=== PATIENT | female | born 1955 | race African-American/Black ===

== ENCOUNTER 2019-09-25 17:44 | Inpatient (IN) | payer BC, OTHER ==
[~2019-09-25] VITALS: Ht 167.6 cm; Wt 79.4 kg
[2019-09-25 18:12] VITALS: BP 135/102
[2019-09-25 18:21] LABS: ABSOLUTE NEUTROPHILS 3.1 thou/uL (1.4-8.2); BASOPHILS 1.5 % (0.0-2.0); EOSINOPHILS 0.5 % (0.0-3.0); MCH 31.1 pg (26.0-34.0); MCHC 32.4 g/dL (28.0-37.0); MCV 95.8 fL (80.0-100.0); MONOCYTES 6.9 % (1.0-8.0); PLATELET COUNT 252 thou/uL (150-400); POLYS 36.1 % (36.0-66.0); RBC 4.18 mil/uL (4.20-5.00); RDW 16.1 % (10.5-14.5); WBC 8.6 thou/uL (4.0-11.0)
[2019-09-25 18:23] LABS: CALCIUM 9.4 mg/dL (8.5-10.1); CREATININE 0.5 mg/dL (0.6-1.0); POTASSIUM 3.4 mmol/L (3.5-5.1)
[2019-09-25 18:29] LABS: ALBUMIN 3.9 g/dL (3.4-5.0); TOTAL BILIRUBIN 0.5 mg/dL (<0.1-1.0); TOTAL PROTEIN 8.5 g/dL (6.4-8.2)
[2019-09-25 19:52] LABS: URINE BILIRUBIN NEGATIVE (Negative); URINE BLOOD NEGATIVE (Negative); URINE CLARITY CLEAR; URINE COLOR YELLOW; URINE GLUCOSE-RANDOM* NEGATIVE (Negative); URINE KETONES 1+ (Negative); URINE LEUKOCYTES-REFLEX NEGATIVE (Negative); URINE NITRITE-REFLEX NEGATIVE (Negative); URINE PROTEIN (DIPSTICK) NEGATIVE (Negative); URINE SPECIFIC GRAVITY 1.015 (1.005-1.035); URINE UROBILINOGEN 0.2 E.U./dl (0.2-1.0)
[2019-09-25 20:00] LABS: AMP/METHAMP Negative (Negative); BARBITURATES Negative (Negative); BENZODIAZEPINES Negative (Negative); COCAINE Negative (Negative); METHADONE Negative (Negative); OPIATES Negative (Negative); PCP Negative (Negative)
[2019-09-25 21:09] VITALS: BP 135/102
--- NOTE | 2019-09-25 21:14 | NUR ---
ED NURSE CALLED INPATIENT NURSE FOR REPORT WAS TOLD THE NURSE IS IN A ROOM PASSING MEDS AND WILL HAVE TO CALL THE ED NURSE BACK
--- NOTE | 2019-09-25 21:30 | NUR ---
ED NURSE CALLED AGAIN TO GIVE REPORT TO INPATIENT NURSE, WAS PLACED ON HOLD AND THEN TOLD THAT THE NURSE WILL CALL BACK IN 10 MINUTES. ED NURSE EXPRESSED THAT IF REPORT IS NOT CALLED IN THE NEXT 10 MINUTES, NURSE WILL GIVE BEDSIDE REPORT
[2019-09-25 22:01] LABS: MAGNESIUM 1.9 mg/dL (1.8-2.4); PHOSPHORUS 3.2 mg/dL (2.5-4.9)
[2019-09-25 22:10] VITALS: BP 142/89
--- NOTE | 2019-09-26 03:16 | NUR ---
[PT WA SADMITTED TO THE UNIT FROM THE ER IN A STABLE CONDITION.PT C/O PAIN ON HER L HIP,MANAGED WITH MED.PT ALERT,CALM AND COOPERATIVE ON ADMIT.PT ON CONT PULSE OX PT TEND TO DESAT WHILE ASLEEP.LEDBETTER CATH TO DD.PT NPO AT THIS TIME FOR A POSSIBLE SURGERY IN THE AM.PT TACHY HOURS AFTER ADMIT,ANXIETY MED ADMINISTERED.PT'S IV ON HER L HAND INFILTRATED,NEW ONE STARTED ON HER R CHEST.PT SLEEPING ON HER BED AT THIS TIME.IVF INFUSING ORDERED.FALL PRECAUTIONS IN PLACE,CALL LIGHT WITHIN REACH.
[2019-09-26 04:30] VITALS: BP 114/77
[2019-09-26 06:37] LABS: ALBUMIN 3.3 g/dL (3.4-5.0); CALCIUM 8.4 mg/dL (8.5-10.1); CREATININE 0.5 mg/dL (0.6-1.0); POTASSIUM 3.1 mmol/L (3.5-5.1); TOTAL BILIRUBIN 0.6 mg/dL (<0.1-1.0); TOTAL PROTEIN 7.2 g/dL (6.4-8.2)
[2019-09-26 07:02] LABS: FOLIC ACID 2.5 ng/mL (8.6-58.9)
[2019-09-26 07:45] VITALS: BP 140/87
[2019-09-26 16:00] VITALS: BP 127/83
[2019-09-26 16:06] LABS: HAV IgM AB (ANTI-HAV IgM) Negative (Negative); HEPATITIS B SURFACE AG Negative (Negative); HEPATITIS C VIRUS AB 0.2 (0.0-0.9)
--- NOTE | 2019-09-26 19:34 | NUR ---
SURGERY PICKED PT UP APPROX. @ 1700 FOR SURGERY. PT WAS A&OX4, CIWA SCORE AT 1 AT 13:30 TODAY. IV WAS INTACT IN R BREAST. LEDBETTER TO DD. SPOUSE WAS AT THE BEDSIDE.
[2019-09-26 20:30] VITALS: BP 141/100
[2019-09-27 03:10] VITALS: BP 137/92
--- NOTE | 2019-09-27 03:32 | NUR ---
ASSESSMENT COMPLETED. PT IS POST HIP L HIP SURGERY. POST SURGICAL DRSG C/D/I. SWCDS IN PLACE. PT OFF OXYGEN AND SATTING WELL ABOVE 95%. LEDBETTER TO D/D WITH DARK YELLOW URINE. TOLERATING ORAL INTAKE WITH NO C/O NAUSEA OR VOMITING. IV FLUIDS INFUSING. IV ABTS GIVEN. PT HAS BEEN CALM AND COOPERATIVE THE WHOLE SHIFT.FALL PREC IN PLACE. SHE CALLS APPROPRIATELY WITH NEEDS.
[2019-09-27 06:15] LABS: HEMATOCRIT 24.4 % (37.0-47.0); MCHC 32.2 g/dL (28.0-37.0); MCV 96.3 fL (80.0-100.0); RBC 2.53 mil/uL (4.20-5.00); RDW 16.2 % (10.5-14.5); WBC 12.2 thou/uL (4.0-11.0)
[2019-09-27 06:20] LABS: HEMOGLOBIN 7.9 gm/dL (12.0-15.0)
[2019-09-27 06:30] LABS: CALCIUM 7.8 mg/dL (8.5-10.1); CREATININE 0.8 mg/dL (0.6-1.0); MAGNESIUM 1.3 mg/dL (1.8-2.4); PHOSPHORUS 1.5 mg/dL (2.5-4.9); TOTAL BILIRUBIN 0.5 mg/dL (<0.1-1.0); TOTAL PROTEIN 6.7 g/dL (6.4-8.2)
[2019-09-27 06:31] LABS: POTASSIUM 4.3 mmol/L (3.5-5.1)
--- NOTE | 2019-09-27 07:08 | O ---
[facility] [place] [address] OPERATIVE REPORT Name: CURRY MARSHALL Room #: 437-P ADM IN M.R.#: [id number] Admission: 09/25/19 Attend Phys: Marcel Ken MD Discharge: Date of : 55 Report #: [id number] THIS REPORT FOR: //name// CC: [facility] physician/PCP Marcel Ken DATE OF SERVICE: 09/26/2019 SERVICE: Orthopedics. FACILITY: [facility]. SURGEON: Shawn Cuevas MD ACCOUNTING SYSTEM EXPERT: Mariposa Villarreal NP PREOPERATIVE DIAGNOSES: 1. Status post fall. 2. Left intertrochanteric hip fracture. POSTOPERATIVE DIAGNOSES: 1. Status post fall. 2. Left intertrochanteric hip fracture. PROCEDURE: Intramedullary nail fixation of left intertrochanteric hip fracture. COMPLICATIONS: None. DRAINS: None. SPECIMENS: None. ANESTHESIA: General. FINDINGS: 1. Unstable intertrochanteric hip fracture. 2. [employer]hew InterTan 11.5 mm short nail with a 95 x 90 mm proximal compression screws and 30 mm distal interlocking screw. HISTORY: The patient is a 63-year-old female who fell at home yesterday. She presented and was diagnosed with intertrochanteric hip fracture. She was indicated for surgical treatment. Risks, benefits, alternatives, and indication of surgery discussed with her in detail as well as her . Risks include but not limited to pain, bleeding, infection, injury to nerves, blood vessels, malunion, nonunion, need for further surgery including revision as well as complications related to anesthesia up to and including mortality. Despite the [facility] [address] [place] [address] OPERATIVE REPORT Name: CURRY MARSHALL Room #: 437-P ADM IN M.R.#: [id number] Admission: 09/25/19 Attend Phys: Marcel Ken MD Discharge: Date of : 55 Report #: [id number] risks they wished to proceed. PROCEDURE IN DETAIL: After left lower extremity was correctly identified in preoperative holding area as the operative extremity, the patient was taken to the operating room where general anesthesia was induced without complication. She was transferred off the fracture table, padded appropriately. Prophylactic antibiotics were administered at appropriate time. C-arm was used to assess the fracture and a provisional fracture reduction was performed with abduction and then traction, adduction and internal rotation. Multiple planes of x-ray were used. Timeout procedure performed. Left hip was then prepped and draped in standard sterile fashion. Time-out procedure was performed. Standard incision was made proximal to the greater trochanter. Dissection was taken down to the trochanter. Then the guide pin was used placed at the tip of the trochanter and then access to the proximal femur was obtained. We then reamed proximally to a 13 mm reamer and then selected the 11.5 mm diameter nail. I placed this over the guide pin to the appropriate height and then used the external rig to place the 95 x 90 mm dual compression screw system, which was selected after drilling to 103 mm depth. I anticipated that the nail would medialize before compression. This did in fact happen as the second screw was placed. Good compression was then achieved with good alignment of the fracture on both AP and lateral. We then used the outrigger to place a static distal locking screw with 30 mm screw. Multiple planes of x-ray were used to confirm that this was infected through the nail. The outrigger was removed. Final x-rays were taken. I was happy with the fracture line as well as the hardware positioning. Wounds were copiously irrigated. Deep layers closed with 0 Vicryl. Skin was closed with 2-0 Vicryl followed by skin fariba. Sterile dressing was applied. The patient was awakened from anesthesia and taken to recovery room in stable condition. No complications. All counts were correct. <ELECTRONICALLY SIGNED> By: Shawn Cuevas MD 09/27/19707 19 32 Shawn Cuevas MD /nt
[2019-09-27 07:59] VITALS: BP 119/74
--- NOTE | 2019-09-27 12:29 | NUR ---
INITIAL ASSESSMENT: Pt evaluated for d/c planning needs. Reviewed chart and spoke with nurse and pt. Pt is alert and oriented. Pt states she lives in house with spouse and was independent with ADL's prior to admission to the hospital. Pt uses no DME and has not had home health. Pt is hopeful to return home on d/c from hospital. Pt is agreeable to referral to [facility]. Will remain available to assist as needed.
[2019-09-27 15:30] VITALS: BP 128/71
--- NOTE | 2019-09-27 18:12 | NUR ---
PT A&OX4. IV INTACT IN R WRIST. AMBULATES SELF IN ROOM. COMPLETED EGD/COLONOSCOPY THIS AM. PT INFORMED HER DAUGHTER THIS AM OF FINDINGS OF MRI, DAUGHTER VERY UPSET. ORDERED BIOPSY AND US OF BREAST INPATIENT. NOTIFIED. RETURN CALL FROM NURSE HUMZA WHO WAS NOTIFIED. NO NEW ORDERS. WILL CONT POC.
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
[2019-09-27 19:12] VITALS: BP 139/92
--- NOTE | 2019-09-28 03:38 | NUR ---
ASSUMED CARE OF PT @1900 PT ASSESSED AT START OF SHIFT WITH C/O PAIN. MEDS GIVEN SEE EMAR. IV INTACT IN LH AND FLUIDS INFUSING. PT WALKED X1 WITH THERAPY DURING THE DAY. AT NIGHT PT WAS WEAK TRIED TO USE THE BSC ENDED USING BEDPAN DUE TO PAIN AND NOT ABLE TO AMBULATE WELL. SCD'S AND FOLLEY INTACT WILL DC FOLLEY IN THE AM. ANXIETY MED GIVENX1 THIS SHIFT. FALL PREC IN PLACE AND WILL CONT WITH POC TILL EOS
[2019-09-28 04:25] VITALS: BP 128/79
[2019-09-28 05:31] LABS: MCH 31.4 pg (26.0-34.0); WBC 15.2 thou/uL (4.0-11.0)
[2019-09-28 05:35] LABS: HEMATOCRIT 22.9 % (37.0-47.0); HEMOGLOBIN 7.4 gm/dL (12.0-15.0); MCHC 32.4 g/dL (28.0-37.0); MCV 96.9 fL (80.0-100.0); RBC 2.36 mil/uL (4.20-5.00); RDW 16.4 % (10.5-14.5)
[2019-09-28 07:29] VITALS: BP 123/80
[2019-09-28 09:20] LABS: CALCIUM 7.6 mg/dL (8.5-10.1); CREATININE 0.5 mg/dL (0.6-1.0); MAGNESIUM 1.3 mg/dL (1.8-2.4); PHOSPHORUS 1.4 mg/dL (2.5-4.9)
[2019-09-28 09:22] LABS: POTASSIUM 2.9 mmol/L (3.5-5.1)
--- NOTE | 2019-09-28 09:36 | NUR ---
Following for d/c planning needs. Pt has been evaluated by [facility] and has been clinically accepted. [facility] is seeking insurance authorization.
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
[2019-09-28 16:37] VITALS: BP 123/87
[2019-09-28 22:05] VITALS: BP 114/77
--- NOTE | 2019-09-29 01:50 | NUR ---
ASSESSED AT START OF SHIFT AT BEDSIDE DURING ASSESSEMENT. A&OX3 FORGETFULL AND EASILY REORIENTED. PT TRIED TO GET UP FROM BED STATING WANTS TO GO UPSTAIRS AND AT TIME BASEMENT PT REORIENTED FREQLY. DENIES APODACA/ N/ V. UP WITH MAX ASSIST TO BSC OR BED KNAPP. SCD'S INTACT AND FALL PREC IN PLACE. DRESSING INTACT. WILL CONT WITH POC TILL EOS
[2019-09-29 02:35] VITALS: BP 135/84
[2019-09-29 06:16] LABS: MCH 31.1 pg (26.0-34.0); MCHC 32.2 g/dL (28.0-37.0); MCV 96.7 fL (80.0-100.0); RBC 2.07 mil/uL (4.20-5.00); RDW 16.3 % (10.5-14.5); WBC 12.6 thou/uL (4.0-11.0)
[2019-09-29 06:28] LABS: HEMOGLOBIN 6.4 gm/dL (12.0-15.0)
[2019-09-29 08:48] LABS: CALCIUM 8.4 mg/dL (8.5-10.1); CREATININE 0.4 mg/dL (0.6-1.0); POTASSIUM 3.3 mmol/L (3.5-5.1)
[2019-09-29 09:01] VITALS: BP 110/71
[2019-09-29 09:14] LABS: MAGNESIUM 1.8 mg/dL (1.8-2.4); PHOSPHORUS 2.4 mg/dL (2.5-4.9)
[2019-09-29 09:32] LABS: HEMATOCRIT 23.3 % (37.0-47.0); HEMOGLOBIN 7.5 gm/dL (12.0-15.0); MCH 31.3 pg (26.0-34.0); MCHC 32.1 g/dL (28.0-37.0); MCV 97.6 fL (80.0-100.0); RBC 2.39 mil/uL (4.20-5.00); RDW 16.2 % (10.5-14.5); WBC 13.4 thou/uL (4.0-11.0)
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
[2019-09-29 10:27] VITALS: BP 110/71
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
--- NOTE | 2019-09-29 12:22 | NUR ---
Following for d/c planning needs. Srinivasa Saucedo from [facility] met with pt today. She will follow up with pt after d/c.
[2019-09-29 18:03] VITALS: BP 102/66
[2019-09-29 19:45] VITALS: BP 102/58
[2019-09-30 04:30] VITALS: BP 121/71
--- NOTE | 2019-09-30 04:53 | NUR ---
ASSESSED AT START OF SHIFT ASKED PT HOW HER DAY WAS STATED IT WAS BAD NO ONE CAME TO VISIT HER. PER REPORT FROM DAY NURSE AND NOTE SEEMS THIS WAS NOT TRUE. PT A&OX3 WITH SOME CONFUSION. PAIN MEDS GIVEN X1 THIS SHIFT AND ANXIETY MED GIVENX1 LATER ON DURING THE SHIFT PT WANTED TO SLEEP. FALL PREC IN PLACE PT HAD FREQ URINATION AND USES BED KNAPP. WILL CONT TO MONITOR TILL EOS
[2019-09-30 05:37] LABS: RBC 2.04 mil/uL (4.20-5.00)
[2019-09-30 05:46] LABS: MCH 31.4 pg (26.0-34.0); MCHC 32.4 g/dL (28.0-37.0); MCV 97.2 fL (80.0-100.0); RDW 16.6 % (10.5-14.5); WBC 12.7 thou/uL (4.0-11.0)
[2019-09-30 05:52] LABS: HEMATOCRIT 19.8 % (37.0-47.0); HEMOGLOBIN 6.4 gm/dL (12.0-15.0)
[2019-09-30 06:00] LABS: CALCIUM 8.6 mg/dL (8.5-10.1); CREATININE 0.4 mg/dL (0.6-1.0); POTASSIUM 3.4 mmol/L (3.5-5.1)
[2019-09-30 08:19] VITALS: BP 116/77
[2019-09-30 10:58] LABS: HEMOGLOBIN 6.7 gm/dL (12.0-15.0)
[2019-09-30 10:59] LABS: HEMATOCRIT 20.5 % (37.0-47.0); MCH 31.4 pg (26.0-34.0); MCHC 32.6 g/dL (28.0-37.0); MCV 96.5 fL (80.0-100.0); RBC 2.13 mil/uL (4.20-5.00); RDW 16.6 % (10.5-14.5); WBC 14.5 thou/uL (4.0-11.0)
[2019-09-30 15:52] VITALS: BP 108/65; BP 118/68; BP 144/100; BP 152/104
[2019-09-30 16:59] VITALS: BP 125/94
[2019-09-30 19:40] VITALS: BP 144/91
--- NOTE | 2019-10-01 03:06 | NUR ---
PT TRANSFERRING TO BEDSIDE COMMODE WITH MAX ASSIST AND IS TOLERATING FAIR. LORTAB PROVIDING PAIN RELIEF. RESTING COMFORTABLY. NO NEEDS VOICED. CALL LIGHT WITHIN REACH. WILL CONTINUE TO PROVIDE FREQUENT OBSERVATION.
[2019-10-01 04:26] LABS: % SATURATION 0 % (20-39); TIBC < 36 ug/dL (250-450)
[2019-10-01 04:28] LABS: IRON 30 ug/dL (50-170)
[2019-10-01 05:35] LABS: HEMOGLOBIN 8.2 gm/dL (12.0-15.0)
[2019-10-01 05:37] LABS: HEMATOCRIT 25.2 % (37.0-47.0); MCH 31.1 pg (26.0-34.0); MCHC 32.6 g/dL (28.0-37.0); MCV 95.3 fL (80.0-100.0); RBC 2.64 mil/uL (4.20-5.00); RDW 16.9 % (10.5-14.5); WBC 18.1 thou/uL (4.0-11.0)
[2019-10-01 05:47] LABS: CALCIUM 9.7 mg/dL (8.5-10.1); CREATININE 0.5 mg/dL (0.6-1.0); MAGNESIUM 1.8 mg/dL (1.8-2.4); POTASSIUM 3.7 mmol/L (3.5-5.1)
[2019-10-01 07:35] VITALS: BP 127/84
[2019-10-01 15:28] VITALS: BP 120/69
[2019-10-01 19:32] LABS: ALBUMIN 3.3 g/dL (3.4-5.0); DIRECT BILIRUBIN 0.3 mg/dL (<0.1-0.2); TOTAL BILIRUBIN 1.1 mg/dL (<0.1-1.0); TOTAL PROTEIN 7.8 g/dL (6.4-8.2)
[2019-10-01 20:15] VITALS: BP 129/89
--- NOTE | 2019-10-02 00:23 | NUR ---
PT PRESENTS AOX4 WITH INTERMITTENT EPISODES OF CONFUSION, PT EASILY REDIRECTED. PT REPORTS PAIN 6-7/10 IN LEFT HIP. DRESSINGS NOTED TO HAVE SEROSANGUINEOUS DRAINAGE. DRESSINGS CHANGED AND INTACT. PT TOLERATED DRESSING CHANGE WELL WITHOUT REPORT OF PAIN. PT TAKING PRN PO NORCO Q4HR AND PRN IV MORPHINE Q4HR. PROVIDED ICE PACKS TO SURGICAL SITE. PT INDEPENDENTLY REPOSITIONS HERSELF. PT CONTINUES TO REST IN BED THROUGHOUT SHIFT, REPORTING RELUCANTANCE AND FEAR OF PAIN AT SURGICAL SITE. PT REPORTS ACUTE EPISODE OF ITCHING, NO NOTES OF AIRWAY COMPROMISE OR RASH. CUSTOMER MARKETING ASSISTANT NOTIFIED, BENADRYL PRN Q8HR ORDERED. PT REPORTS RELIEF FROM ITCHING AFTER BENADRYL ADMINISTERED. CONTINUES TO TOLERATE PO INTAKE WITHOUT ISSUE. PT ENCOURAGED TO NOTIFY STAFF FOR ALL NEEDS. CALL LIGHT WITHIN REACH, BED AT LOWEST POSITION, BED ALARM ON. WILL CONTINUE TO MONITOR.
[2019-10-02 05:50] LABS: MCV 94.7 fL (80.0-100.0); RBC 2.59 mil/uL (4.20-5.00)
[2019-10-02 05:53] LABS: HEMATOCRIT 24.5 % (37.0-47.0); MCH 30.7 pg (26.0-34.0); MCHC 32.4 g/dL (28.0-37.0); RDW 17.1 % (10.5-14.5); WBC 15.3 thou/uL (4.0-11.0)
[2019-10-02 06:12] LABS: ALBUMIN 2.8 g/dL (3.4-5.0); CALCIUM 10.2 mg/dL (8.5-10.1); CREATININE 0.5 mg/dL (0.6-1.0); MAGNESIUM 1.8 mg/dL (1.8-2.4); POTASSIUM 4.2 mmol/L (3.5-5.1); TOTAL BILIRUBIN 0.8 mg/dL (<0.1-1.0); TOTAL PROTEIN 7.1 g/dL (6.4-8.2)
[2019-10-02 07:30] VITALS: BP 110/70
--- NOTE | 2019-10-02 09:43 | NUR ---
SPOKE WITH ACCESS SPECIALIST AT [facility], THEY ARE DECLINING THE PATIENT. [employer] [facility] [employer] STATES SHE WOULD MORE BENIFIT FROM AN ALCOHOL TREATMENT PROGRAM RATHER THAN SKILLED. SPOKE WITH ANGELINE MCCALLUM, SHE IS LOOKING INTO ANOTHER FACILITY IN NETWORK WITH INSURANCE. [facility]
--- NOTE | 2019-10-02 10:44 | NUR ---
Assumed care of pt at 0700. Pt worked with phyisical therapy this morning and walked to the chair with walker and gaitbelt. Dressing has small amount of drainage. Pt c/o pain. Prn pain meds administered. External catheter in place. Possible D/C to SNF. Call light within reach. Fall precautions in place.
--- NOTE | 2019-10-02 11:57 | NUR ---
Updated the pt and spouse Humberto at bedside regarding dc planning efforts. [facility] snf has declined the pt. SNF listing for [facility] insurance reviewed. They [facility]. Will fax referrals and call to check availability. Pt is cleared for dc today. Will need insurance auth for SNF admission.
[2019-10-02 16:19] VITALS: BP 103/70
[2019-10-02 19:35] VITALS: BP 116/75
[2019-10-03 04:18] VITALS: BP 104/75
--- NOTE | 2019-10-03 05:34 | NUR ---
faxed referral to the [facility]
--- NOTE | 2019-10-03 05:35 | NUR ---
faxed referral to [facility]
[2019-10-03 06:16] LABS: WBC 16.3 thou/uL (4.0-11.0)
[2019-10-03 06:19] LABS: HEMATOCRIT 28.2 % (37.0-47.0); MCH 30.4 pg (26.0-34.0); MCHC 31.9 g/dL (28.0-37.0); MCV 95.4 fL (80.0-100.0); RBC 2.95 mil/uL (4.20-5.00)
[2019-10-03 06:39] LABS: CALCIUM 9.9 mg/dL (8.5-10.1); CREATININE 0.6 mg/dL (0.6-1.0); MAGNESIUM 1.8 mg/dL (1.8-2.4); POTASSIUM 3.7 mmol/L (3.5-5.1)
--- NOTE | 2019-10-03 07:44 | NUR ---
PT AOX4 WITH INTERMITTENT, BRIEF EPISODES OF CONFUSION AND FORGETFULLNESS. PT EASILY REDIRECTED. PT REPORTS PAIN 7/10 IN LEFT HIP. PT RECEIVING PRN PO NORCO Q4HR AND PRN IV MORPHINE Q4HR. PT ALSO REPORTS ANXIETY AND OBSERVED WITH RESTLESSNESS. PT RECEIVING PRN PO ATIVAN Q4HR. PT WEIGHT BEARING TOLERATED, PT RELUCTANT AND TENSING WHEN WEIGHT BEARING OR MOVING LLE. ENCOURAGED PT TO BREATHE, PT REPORTS RELIEF WITH BREATHING EXERCISES. PT INCONTINENT WITH PURE WICK IN PLACE. PT TOLERATING PO INTAKE WITHOUT ISSUE. ENCOURAGED TO NOTIFY STAFF FOR ALL NEEDS. BED IN LOWEST POSITION, CALL LIGHT WITHIN REACH, BED ALARM ON. WILL CONTINUE TO MONITOR.
[2019-10-03 08:06] VITALS: BP 110/78
--- NOTE | 2019-10-03 14:07 | NUR ---
Following for d/c planning needs. Called [facility] and they have clinically accepted pt, but have not heard back from insurance. Pt's called and said he is ok with pt going to [facility], but also wants referral sent to [facility]. Called [facility] and left message. Awaiting to hear back re: insurance auth.
--- NOTE | 2019-10-03 16:01 | NUR ---
ASSUMED CARE AT 0700. PATIENT IS AOX4 BUT DOES HAVE BRIEF MOMENTS OF CONFUSION. WORKED WITH PT THIS MORNING, UP AND WALKED FROM BED AND OUT INTO THE GOMEZ AND BACK TO THE CHAIR. WEIGHT BEARING IS TOLERATED BUT PATIENT DOES C/O OF PAIN 8/. PRN PAIN MEDICATIONS GIVEN. PATIENT WAS UP TO USE THE BSC AND HAD A SMALL BM. PATIENT IS URINE INCONTINENT WITH PURE WICK IN PLACE. FOOD INTAKE IS GOOD WITHOUT ISSUE. BED IN LOWEST POSTION, ALARM IS ON, CALL LIGHT WITHIN REACH. DRESSING ON THE LEFT HIP HAS A SMALL AMOUNT OF DRAINAGE. CXR AND HIP XRAY ORDERED. ID CONSULTED (VERBALLY COMMUNICATED CONSULT WITH DR. REYNOSO). FALL PRECAUTIONS IN PLACE.
[2019-10-03 17:02] VITALS: BP 115/70
[2019-10-03 19:22] VITALS: BP 117/73
--- NOTE | 2019-10-04 05:41 | NUR ---
PT C/O PAIN AND ANXIETY,MANAGED WITH MED.PT ALERT WITH FORGETFULNESS.DRSG ON HER HIP C/D/I.UP WITH ASSIST X1 TO BSC.UA OBTAINED AND SENT TO THE LAB.SNACK OFFERED AT HS.PT RESTING ON HER BED AT THIS TIME.SCD'S ON.FALL PRECAUTIONS IN PLACE,CALL LIGHT WITHIN REACH.
[2019-10-04 06:52] LABS: URINE BILIRUBIN NEGATIVE (Negative); URINE BLOOD NEGATIVE (Negative); URINE CLARITY CLEAR; URINE COLOR YELLOW; URINE GLUCOSE-RANDOM* NEGATIVE (Negative); URINE KETONES NEGATIVE (Negative); URINE LEUKOCYTES-REFLEX NEGATIVE (Negative); URINE NITRITE-REFLEX NEGATIVE (Negative); URINE PROTEIN (DIPSTICK) NEGATIVE (Negative); URINE SPECIFIC GRAVITY <= 1.005 (1.005-1.035); URINE UROBILINOGEN 0.2 E.U./dl (0.2-1.0)
[2019-10-04 08:00] VITALS: BP 106/76
--- NOTE | 2019-10-04 12:03 | NUR ---
Following for d/c planning needs. Received telephone call from client support coordinator at [facility]. Spouse toured facility and told them he wants pt to go to [facility] rather than [facility]. Spoke with client support coordinator at [facility]. She is aware of change in plans. Spoke with pt and spouse. Spouse toured [facility] and wants pt to go there. Spoke with client support coordinator at [facility] and she received fax from [facility] re: patient. Awaiting return call re: acceptance and insurance approval.
--- NOTE | 2019-10-04 12:33 | NUR ---
followup: +etoh abuse, hip fx following fall. Eating 80-100% of meals and receptive to ensure enlive. No new wt. On ferrous sulfate, vitamin, folic acid supplementation and thiamin. Discharge planning in progress. Change nutrition status to low risk
[2019-10-04 12:56] LABS: CALCIUM 10.5 mg/dL (8.5-10.1); CREATININE 0.6 mg/dL (0.6-1.0); POTASSIUM 3.5 mmol/L (3.5-5.1)
[2019-10-04 13:46] LABS: HEMATOCRIT 29.1 % (37.0-47.0); HEMOGLOBIN 9.3 gm/dL (12.0-15.0); MCH 30.7 pg (26.0-34.0); MCHC 31.9 g/dL (28.0-37.0); MCV 96.2 fL (80.0-100.0); RBC 3.03 mil/uL (4.20-5.00); RDW 16.8 % (10.5-14.5); WBC 15.3 thou/uL (4.0-11.0)
[2019-10-04 13:55] LABS: PLATELET COUNT 478 thou/uL (150-400)
--- NOTE | 2019-10-04 14:00 | NUR ---
PT CARE ASSUMED AT 0700. A&OX3. PT IS UP IN RECLINER FOR MOST OF THE DAY. UP WITH ONE ASSIST. PAIN IS MANAGED WELL WITH ORAL PAIN MEDICATION. IV IS PATENT WITH NO REDNESS OR SWELLING. CHAIR ALARM IN PLACE. PT/ OT ON BOARD. CALL LIGHT IS STILL NOT WORKING IN PT ROOM.
[2019-10-04 14:22] LABS: ABSOLUTE NEUTROPHILS 11.5 thou/uL (1.4-8.2); ANISOCYTOSIS 1+; NUCLEATED RBCS 1 /100WBC; PLATELET ESTIMATE NORMAL; POLYCHROMASIA 1+
--- NOTE | 2019-10-04 14:52 | NUR ---
SPOKE WITH SHAHANA IN ADM AT [facility] SHE NEEDED CLINICAL UPDATE TO SUBMIT FOR INS. AUTH FAXED UPDATE AND SPOKE WITH SHAHANA AND SHE WILL SUBMIT IT FOR AUTH FOR SKILLED STAY AT [facility].
--- NOTE | 2019-10-04 15:15 | HC ---
[facility] [place] [address] CONSULTATION Name: CURRY MARSHALL Room #: 437-P ADM IN M.R.#: [id number] Admission: 09/25/19 Attend Phys: Marcel Ken MD Discharge: Date of : 55 Report #: [id number] THIS REPORT FOR: //name// CC: JO[facility] physician/PCP Marcel Ken DATE OF SERVICE: 09/27/2019 HISTORY OF PRESENT ILLNESS: The patient is a 63-year-old -[place] female admitted after a fall sustaining a left hip fracture. She was noted to be a history of alcohol abuse and she was initially noted to have some encephalopathy thought suspected secondary to the alcohol. Elevated liver function tests were noted. She was diagnosed with a left hip intertrochanteric fracture and has undergone an intramedullary nail on 09/26/2019. She is allowed weightbearing as tolerated. She appears to have cleared cognitively. We are seeing her in rehabilitation medicine consultation. PAST MEDICAL HISTORY: History of ETOH usage. Noted to drink whiskey daily. ALLERGIES: No known drug allergies. MEDICATIONS: Please see the MAR. SOCIAL HISTORY: Lives in a house with her , 4 steps in, was premorbidly independent without adaptive devices. Full flight of steps to the basement. is retired. She is not disabled and we will be able to give her some assistance. REVIEW OF SYSTEMS: No current complaints of chest pain, shortness of breath or abdominal discomfort. She does have a prior history of hypertension and has been on blood pressure medications. PHYSICAL EXAMINATION: GENERAL: A 63-year-old -[place] female in no obvious distress. VITAL SIGNS: Temperature 99, pulse 105, respirations 18, and blood pressure 119/74. NEUROLOGIC: She is alert, pleasant, and appears appropriate. HEENT: Facies are symmetric. EXTREMITIES: She has functional range of motion of both upper extremities. Strength is grade 4- to 3+/5. DTRs are trace to 1. Right lower extremity, no focal calf swelling, functional range of motion, strength is grade 4-/5. Left hip is dressed. She has no focal calf swelling. She can dorsiflex the left ankle with strength at least a grade 4-/5. She is max assist with sit to stand. She is able to ambulate mod assist 2 steps with a front-wheeled walker. She is min assist for upper body dressing, dependent for lower body dressing. [address] [address] CONSULTATION Name: CURRY MARSHALL Room #: 437-P [facility] IN M.R.#: [id number] Admission: 09/25/19 Attend Phys: Marcel Ken MD Discharge: Date of : 55 Report #: [id number] ASSESSMENT: A 63-year-old -[place] female with the following problem list: 1. Left hip intertrochanteric fracture, status post intramedullary nail 09/26/2019, weightbearing as tolerated. 2. Toxic metabolic encephalopathy, mild, appears to be resolved/resolving. 3. Chronic ethyl alcohol abuse. 4. Hypertension. 5. Alcoholic hepatitis. PLAN: The patient is a candidate for an acute in-hospital inpatient rehabilitation stay. Orthopedic input appreciated and agree that she would likely benefit from a rehabilitation stay. She does have the stairs at home. She appears motivated to further improve her functional independence. Discussed with the patient. Insurance precertification issues are being looked into. <ELECTRONICALLY SIGNED> By: Cornel Chua MD 10/04/19 1515 [id number] Cornel Chua MD /nt
--- NOTE | 2019-10-05 01:56 | NUR ---
1899 ASSUMED CARE OF PT AFTER BEDSIDE REPORT WITH DAY SHIFT NURSE. 2044 BASELINE ASSESSMENT COMPLETED, PT RESTING IN BED WITH NO COMPLAINTS. CLIENT DENIES ANXIETY AND APPEARS CALM. CLIENT HAS ALL BELONGINGS IN REACH WITH GARCÍA FOR CALL LIGHT, EXTERNAL CATHETER IN PLACE. PT ENCOURAGED TO COUGH, DEEP BREATHE AND CHANGE POSITIONS OFTEN. DRESSING TO INCISION IS C/D/I WILL CONTINUE WITH HOURLY ROUNDING.
[2019-10-05 04:15] VITALS: BP 118/79
[2019-10-05 07:30] VITALS: BP 101/64
--- NOTE | 2019-10-05 07:31 | NUR ---
ASSUMED CARE PATIENT SLEEPING COMFORTABLY.
--- NOTE | 2019-10-05 12:32 | NUR ---
Following for d/c planning needs. Received telephone call from physician support [place] [facility] [place] for pt to go to SN[place]. Called spouse to let him know. Will make w/c van arrangements when orders are available. [facility] [phone]
[2019-10-05] MEDS ORDERED: IRON325 PO (14:37)
[2019-10-05] MEDS ORDERED: FOLIC ACID1 MG PO (14:37)
[2019-10-05] MEDS ORDERED: VITAMIN B-1100 M2 PO (14:37)
[2019-10-05] MEDS ORDERED: NORCO 5-325 TA1 EAC1 PO (14:38)
--- NOTE | 2019-10-05 14:51 | NUR ---
PT DISCHARGING TODAY TO [facility] FAXED DC ORDERS/SUMMARY TO FACILITY SPOKE WITH SHAHANA IN ADM [facility] SHE RECEIVED DC ORDERS AND ARRANGED TRANSPORT BY [facility] FOR [phone]. FAMILY NOTIFIED AT BEDSIDE BY VANE RIBEIRO) UNIT NOTIFIED AND CHART COPY PER US. RN TO CALL REPORT TO [phone].
--- NOTE | 2019-10-05 15:24 | NUR ---
PT ARRIVED ON UNIT AT 1500. PT GIVEN PRN PAIN MED, IV ABT INFUSING ORDERED. PT ALERT XS 4. PLEASANT AND COOPERATIVE WITH CARE. VS'S TAKEN SEE CHART. PT WAS TRANSFERRED FROM [address] [place] [address].
--- NOTE | 2019-10-05 16:15 | NUR ---
CALLED [facility]. REPORT GIVEN TO LELA HERNANDEZ. PT'S IV ACSESS DCD. ALL BELONGINGS PACKED AND WILL BE SENT WITH PATIENT. HERE IN ROOM.
--- NOTE | 2019-10-05 17:38 | NUR ---
PT DISCHARGED AT THIS TIME LEFT W/C VAN. IV ACSESS DCD. REPORT GIVEN TO [facility]. HAS LEFT HIP WITH DRESSING INTACT. DR SIDDIQUI CALLED AND STATES HE WANTS [facility] TO STAY IN XS 2 WEEKS. THE FACILITY [facility] CAN SET UP APPT OR CALL FOR ORDER TO DC [facility]. PT W/O PAIN OR RESP DISTRESS AT DISCHARGE.
== END 2019-10-05 17:43 | DRG 480 ==
LOC: ER 17:44 → 4S 20:23 → EROBS 20:23 → 4S 21:44
PROVIDERS: Hospitalist; Internal Medicine; Nurse Practitioner Family; Orthopaedic Surgery Sports Medicine; Physician Assistant; ADMIT Internal Medicine
PROC: 0QH706Z Insertion of Intramedullary Internal Fixation Device into Left Upper Femur, Open Approach (ICD-10-PCS; principal; 2019-09-26)
PROC: 30233N1 Transfusion of Nonautologous Red Blood Cells into Peripheral Vein, Percutaneous Approach (ICD-10-PCS; 2019-09-30)
DX: S72.142A Displaced intertrochanteric fracture of left femur, initial encounter for closed fracture (principal); G92 Toxic encephalopathy; D62 Acute posthemorrhagic anemia; I10 Essential (primary) hypertension; F10.10 Alcohol abuse, uncomplicated; R74.0 Nonspecific elevation of levels of transaminase and lactic acid dehydrogenase [LDH]; E83.42 Hypomagnesemia; K70.10 Alcoholic hepatitis without ascites; E83.39 Other disorders of phosphorus metabolism; D72.829 Elevated white blood cell count, unspecified; E53.8 Deficiency of other specified B group vitamins; E87.6 Hypokalemia; W18.39XA Other fall on same level, initial encounter; Y93.89 Activity, other specified; Y92.89 Other specified places as the place of occurrence of the external cause; Y99.8 Other external cause status
CPT/HCPCS: 10100; 10195; 50010; 50101; 50386; 51412; 51538; 52304; 55445; 56525; 56526; 57092; 62110; 62900; 70005